=== PATIENT | female | born 1945 | race Caucasian/White ===

== ENCOUNTER → 2018-02-04 | Outpatient (CLI) | payer BC ==
[~2018-02-04] MED LIST: ACYC5OIN4; ALBUAER3; ALPR0.25; AZEL137S; DICL1GEL7; ELMI100C; ESTR1TAB78; FLEC1.3D4; HYDR-755; METO50TA; OMEP40CA2; OXYC-395; PRIM50TA5; PROP40TA3; RANI150C; TERC0.4C2; VALA500T; ZOLP10TA3
--- NOTE | 2018-02-08 09:38 | RSPPFT ---
DATE OF PROCEDURE: 02/04/18 COMMENTS: Spirometry demonstrates an FEV1 of 1.8 at 91% of predicted, FVC of 2.2 at 89%, FEF 25-75 is 100%. Post-bronchodilator study demonstrated improvements in the FEF 25-75 suggesting a response. Lung volumes appear unremarkable but the airways resistance is mildly increased. Diffusion capacity is severely reduced. Flow volume loops are mildly atypical due to lack of proper patient effort. IMPRESSION: 1. Essentially normal spirometry. 2. No significant change following use of bronchodilator. 3. Severe loss in diffusion capacity,.
== END ==
LOC: PHRSP 12:46
PROVIDERS: ATTEND Internal Medicine Pulmonary Disease
DX: J44.9 Chronic obstructive pulmonary disease, unspecified (principal); R05 Cough; R06.00 Dyspnea, unspecified
CPT/HCPCS: 94060; 94726; 94729

== ENCOUNTER 2018-05-22 19:15 | Inpatient (IN) ==
[2018-05-22] MEDS ORDERED: Lidocaine 1%/Epinephrine 1:100,000 Inj 50 ML Vial INFILTRATN ONE (19:58)
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
[2018-05-23] MEDS ORDERED: Acetaminophen 325 MG Tablet PO PRN (01:21)
[2018-05-23] MEDS ORDERED: Bisacodyl 10 MG Supp RECTAL PRN (01:21)
[2018-05-23 01:37] LABS: Baso # (Auto) 0.1 th/mm3 (0.0-0.2); Baso % (Auto) 0.5 % (0.0-2.0); Eos % (Auto) 0.1 % (0.0-4.0); Hemoglobin 13.8 gm/dL (11.6-15.3); Lymph # (Auto) 1.3 th/mm3 (1.0-4.8); Lymph % (Auto) 11.7 % (9.0-44.0); Mean Corpuscular HGB Conc 32.8 % (32.0-36.0); Mean Corpuscular Volume 85.4 fL (80.0-100.0); Mean Platelet Volume 8.9 fL (7.0-11.0); Mono # (Auto) 1.1 th/mm3 (0.0-0.9); Neut # (Auto) 8.7 th/mm3 (1.8-7.7); Neut % (Auto) 77.7 % (16.0-70.0); Platelet Count 247 th/mm3 (150-450); Red Blood Count 4.92 mil/mm3 (4.00-5.30); Red Cell Distribution Width 17.4 % (11.6-17.2); White Blood Count 11.2 th/mm3 (4.0-11.0)
[2018-05-23 01:51] LABS: Activated Partial Thrombo Time 25.7 sec (24.3-30.1); Prothrombin Time 10.3 sec (9.8-11.6)
[2018-05-23 01:52] LABS: Anion Gap 10 meq/L (5-15); Blood Urea Nitrogen 14 mg/dL (7-18); Calcium 8.8 mg/dL (8.5-10.1); Carbon Dioxide 25.6 meq/L (21.0-32.0); Chloride 105 meq/L (98-107); Glomerular Filtration Rate Greater Than 89 mL/min (>89); Glucose,Random 103 mg/dL (74-106); Potassium 4.3 meq/L (3.5-5.1); Sodium 141 meq/L (136-145)
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
[2018-05-23] MEDS: Sod Chloride 0.9% Inj 1,000 ML IV.CONT SCH ×2 (04:05→13:28)
[2018-05-23] MEDS: Morphine Sulfate Inj 2 MG/ML Vial IV.PUSH PRN (04:05)
[2018-05-23] MEDS ORDERED: Chlorhexidine Gluconate 2% 1 Pack (2 Cloths) TOPICAL ONE (04:06)
[2018-05-23] MEDS ORDERED: Metoprolol Tartrate 25 MG Tablet PO ONE (04:06)
[2018-05-23] MEDS ORDERED: Sodium Chlor 0.9% Inj 500 ML IV.SIG SCH (05:00)
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
[2018-05-23] MEDS: Senna/Docusate Sodium 8.6/50 MG Tablet PO SCH ×2 (09:19→20:26)
--- NOTE | 2018-05-23 13:58 | ECG ---
Date Performed: 05/23/2018 Time Performed: 05:15:52 PTAGE: 72 years EKG: Sinus rhythm . Left axis deviation RBBB with left anterior fascicular block Inferior infarct - age undetermined Ab normal ECG PREVIOUS TRACING : 06/28/2012 20.08 DOCTOR: Fabian Barber Interpretating Date/Time 05/23/2018 13:56:40
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
[2018-05-23] MEDS ORDERED: Metoprolol Tartrate 50 MG Tablet PO SCH (18:00)
[2018-05-24] MEDS: Sod Chloride 0.9% Inj 1,000 ML IV.CONT SCH ×2 (01:42→09:22)
[2018-05-24 09:48] LABS: Baso # (Auto) 0.1 th/mm3 (0.0-0.2); Baso % (Auto) 0.6 % (0.0-2.0); Eos # (Auto) 0.1 th/mm3 (0.0-0.4); Eos % (Auto) 0.6 % (0.0-4.0); Hematocrit 36.3 % (35.0-46.0); Hemoglobin 12.4 gm/dL (11.6-15.3); Lymph # (Auto) 1.3 th/mm3 (1.0-4.8); Mean Corpuscular HGB Conc 34.2 % (32.0-36.0); Mean Corpuscular Hemoglobin 28.5 pg (27.0-34.0); Mean Corpuscular Volume 83.5 fL (80.0-100.0); Mean Platelet Volume 8.2 fL (7.0-11.0); Mono # (Auto) 1.2 th/mm3 (0.0-0.9); Neut # (Auto) 7.4 th/mm3 (1.8-7.7); Neut % (Auto) 73.8 % (16.0-70.0); Platelet Count 201 th/mm3 (150-450); Red Blood Count 4.34 mil/mm3 (4.00-5.30); Red Cell Distribution Width 17.7 % (11.6-17.2)
[2018-05-24] MEDS: Loratadine 10 MG Tablet PO SCH (09:57)
[2018-05-24] MEDS: Senna/Docusate Sodium 8.6/50 MG Tablet PO SCH ×2 (09:58→20:47)
[2018-05-24] MEDS: Propranolol 40 MG Tablet PO SCH ×2 (10:03→20:47)
[2018-05-24 10:26] LABS: Alanine Aminotransferase 20 U/L (10-53); Alkaline Phosphatase 57 U/L (45-117); Anion Gap 9 meq/L (5-15); Aspartate Aminotransferase 23 U/L (15-37); Blood Urea Nitrogen 12 mg/dL (7-18); Calcium 8.4 mg/dL (8.5-10.1); Carbon Dioxide 26.4 meq/L (21.0-32.0); Chloride 105 meq/L (98-107); Glomerular Filtration Rate Greater Than 89 mL/min (>89); Glucose,Random 121 mg/dL (74-106); Potassium 3.2 meq/L (3.5-5.1); Sodium 140 meq/L (136-145); Total Protein 6.5 g/dL (6.4-8.2)
--- NOTE | 2018-05-24 10:39 | P.PNOP ---
Subjective Interval history: Resting comfortably. She states that her right wrist is continuing to improve.. A cockup wrist brace was applied yesterday Physical Exam Vital signs: Vital Signs 05/23/18 12:00 05/23/18 14:33 05/23/18 16:00 Temperature 97.3 F L 98 F Pulse Rate 84 87 Respiratory Rate 18 18 Blood Pressure 128/71 149/73 H Pulse Oximetry 94 L 97 05/23/18 20:00 05/24/18 00:15 05/24/18 08:00 Temperature 98.3 F 98.8 F 97.9 F Pulse Rate 81 63 84 Respiratory Rate 18 18 18 Blood Pressure 152/72 H 143/68 H 116/60 Pulse Oximetry 95 93 L 94 L Intake & Output 05/23/18 05/24/18 05/24/18 18:59 06:59 18:59 Intake Total 1000 / 1000 Balance 1000 / 1000 Intake: IV 1000 / 1000 NS Inj 1,000 ML @ 100 mls/hr IV 1000 / 1000 .CONT .Q10H [facility] Rx#:[id number] Other: # Voids 4 Date of Last Bowel Movement 05/21/18 05/21/18 Narrative: Right upper extremity: No pain with shoulder elbow range of motion. Removal cockup wrist splint is in place. She has intact sensation over the radial ulnar and median nerve distributions with good capillary refills. She is able to fully extend her fingers and make a fist Results - Labs CBC & Chem 7: 05/24/18 08:34 05/24/18 08:34 Laboratory Results - last 24 hr 05/24/18 05/24/18 08:34 08:34 WBC 10.0 RBC 4.34 Hgb 12.4 Hct 36.3 MCV 83.5 MCH 28.5 MCHC 34.2 RDW 17.7 H Plt Count 201 MPV 8.2 Neut % (Auto) 73.8 H Lymph % (Auto) 13.0 [place] % (Auto) 12.0 H Eos % (Auto) 0.6 Baso % (Auto) 0.6 Neut # (Auto) 7.4 Lymph # (Auto) 1.3 [place] # (Auto) 1.2 H Eos # (Auto) 0.1 Baso # (Auto) 0.1 WBC Differential . Differential Comment Auto diff final Sodium 140 Potassium 3.2 L D Chloride 105 Carbon Dioxide 26.4 Anion Gap 9 BUN 12 Creatinine 0.52 Estimated GFR Greater than 89 Random Glucose 121 H Calcium 8.4 L Total Bilirubin 0.6 AST 23 ALT 20 Alkaline Phosphatase 57 Total Protein 6.5 Albumin 3.0 L Assessment and Plan - Assessment and Plan Right radial styloid fracture Nonoperative treatment. Nonweightbearing right wrist. Cockup wrist splint to be worn at all times. She is to work on extension flexion of all fingers. Orthopedically cleared for discharge. Follow-up appointment in approximately 2 weeks of the right wrist
[2018-05-24] MEDS ORDERED: ELMIRON 100 MG PO SCH (11:00)
[2018-05-24] MEDS: Primidone 50 MG Tablet PO SCH ×2 (12:07→20:49)
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
[2018-05-24] MEDS ORDERED: Enoxaparin Inj 40 MG/0.4 ML Syringe SQ ONE (16:00)
[2018-05-24] MEDS: Metoprolol Tartrate 50 MG Tablet PO SCH (17:16)
[2018-05-24] MEDS: ALPRAZolam 0.25 MG Tablet PO SCH (20:47)
[2018-05-24] MEDS: Morphine Sulfate Inj 2 MG/ML Vial IV.PUSH PRN (22:20)
[2018-05-25 07:36] LABS: Chloride 104 meq/L (98-107); Potassium 3.8 meq/L (3.5-5.1); Sodium 139 meq/L (136-145)
[2018-05-25 07:41] LABS: Anion Gap 10 meq/L (5-15); Blood Urea Nitrogen 10 mg/dL (7-18); Calcium 8.1 mg/dL (8.5-10.1); Carbon Dioxide 25.2 meq/L (21.0-32.0); Glomerular Filtration Rate Greater Than 89 mL/min (>89); Glucose,Random 110 mg/dL (74-106)
[2018-05-25] MEDS: Metoprolol Tartrate 50 MG Tablet PO SCH ×3 (08:09→17:44)
[2018-05-25] MEDS: Propranolol 40 MG Tablet PO SCH ×2 (08:09→20:21)
[2018-05-25] MEDS: Loratadine 10 MG Tablet PO SCH (08:09)
[2018-05-25] MEDS: Senna/Docusate Sodium 8.6/50 MG Tablet PO SCH ×2 (08:09→20:20)
[2018-05-25] MEDS: Primidone 50 MG Tablet PO SCH ×2 (08:09→20:20)
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
[2018-05-25] MEDS: ALPRAZolam 0.25 MG Tablet PO SCH (20:21)
[2018-05-26] MEDS: Senna/Docusate Sodium 8.6/50 MG Tablet PO SCH ×2 (08:45→21:24)
[2018-05-26] MEDS: Primidone 50 MG Tablet PO SCH ×2 (08:45→21:24)
[2018-05-26] MEDS: Metoprolol Tartrate 50 MG Tablet PO SCH ×3 (08:45→18:47)
[2018-05-26] MEDS: Propranolol 40 MG Tablet PO SCH ×2 (08:45→21:24)
[2018-05-26] MEDS: Loratadine 10 MG Tablet PO SCH (08:46)
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
[2018-05-26] MEDS: ALPRAZolam 0.25 MG Tablet PO SCH (21:24)
[2018-05-27] MEDS: Loratadine 10 MG Tablet PO SCH (08:47)
[2018-05-27] MEDS: Senna/Docusate Sodium 8.6/50 MG Tablet PO SCH ×2 (08:47→21:20)
[2018-05-27] MEDS: Propranolol 40 MG Tablet PO SCH ×2 (08:47→21:20)
[2018-05-27] MEDS: Metoprolol Tartrate 50 MG Tablet PO SCH ×3 (08:47→17:28)
[2018-05-27] MEDS: Primidone 50 MG Tablet PO SCH ×2 (08:47→21:20)
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
[2018-05-27] MEDS: ALPRAZolam 0.25 MG Tablet PO SCH (21:20)
[2018-05-28] MEDS: Metoprolol Tartrate 50 MG Tablet PO SCH ×3 (08:48→17:40)
[2018-05-28] MEDS: Senna/Docusate Sodium 8.6/50 MG Tablet PO SCH ×2 (08:49→21:01)
[2018-05-28] MEDS: Primidone 50 MG Tablet PO SCH ×2 (08:49→21:01)
[2018-05-28] MEDS: Propranolol 40 MG Tablet PO SCH ×2 (08:49→21:01)
[2018-05-28] MEDS: Loratadine 10 MG Tablet PO SCH (08:49)
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
[2018-05-28] MEDS: ALPRAZolam 0.25 MG Tablet PO SCH (21:01)
[2018-05-28] MEDS: Methocarbamol 500 MG Tablet PO PRN (23:46)
[2018-05-29] MEDS: Loratadine 10 MG Tablet PO SCH (08:47)
[2018-05-29] MEDS: Senna/Docusate Sodium 8.6/50 MG Tablet PO SCH ×3 (08:47→20:02)
[2018-05-29] MEDS: Primidone 50 MG Tablet PO SCH ×3 (08:47→20:01)
[2018-05-29] MEDS: Methocarbamol 500 MG Tablet PO PRN (09:26)
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
[2018-05-29] MEDS: Propranolol 40 MG Tablet PO SCH ×3 (09:30→20:01)
[2018-05-29] MEDS: Metoprolol Tartrate 50 MG Tablet PO SCH ×3 (09:30→17:24)
[2018-05-29] MEDS: ALPRAZolam 0.25 MG Tablet PO SCH ×2 (19:55→20:03)
[2018-05-30] MEDS: Senna/Docusate Sodium 8.6/50 MG Tablet PO SCH ×2 (09:10→21:04)
[2018-05-30] MEDS: Propranolol 40 MG Tablet PO SCH ×2 (09:10→21:03)
[2018-05-30] MEDS: Loratadine 10 MG Tablet PO SCH (09:10)
[2018-05-30] MEDS: Primidone 50 MG Tablet PO SCH ×2 (09:10→21:03)
[2018-05-30] MEDS: Metoprolol Tartrate 50 MG Tablet PO SCH ×3 (09:10→18:54)
[2018-05-30] MEDS: Methocarbamol 500 MG Tablet PO PRN ×2 (10:51→21:04)
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
[2018-05-30] MEDS: ALPRAZolam 0.25 MG Tablet PO SCH (21:04)
[2018-05-31] MEDS: Metoprolol Tartrate 50 MG Tablet PO SCH ×3 (08:12→17:31)
[2018-05-31] MEDS: Primidone 50 MG Tablet PO SCH ×2 (08:12→20:38)
[2018-05-31] MEDS: Loratadine 10 MG Tablet PO SCH (08:13)
[2018-05-31] MEDS: Senna/Docusate Sodium 8.6/50 MG Tablet PO SCH ×2 (08:13→20:38)
[2018-05-31] MEDS: Propranolol 40 MG Tablet PO SCH ×2 (08:13→20:38)
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
[2018-05-31] MEDS: Methocarbamol 500 MG Tablet PO PRN (20:38)
[2018-05-31] MEDS: ALPRAZolam 0.25 MG Tablet PO SCH (20:38)
[2018-06-01 08:06] VITALS: RESP 18
[2018-06-01] MEDS: Loratadine 10 MG Tablet PO SCH (08:10)
[2018-06-01] MEDS: Methocarbamol 500 MG Tablet PO PRN (08:10)
[2018-06-01] MEDS: Primidone 50 MG Tablet PO SCH (08:10)
[2018-06-01] MEDS: Propranolol 40 MG Tablet PO SCH (08:10)
[2018-06-01] MEDS: Metoprolol Tartrate 50 MG Tablet PO SCH ×3 (08:10→17:23)
[2018-06-01] MEDS: Senna/Docusate Sodium 8.6/50 MG Tablet PO SCH (08:11)
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
[2018-06-01 14:13] VITALS: BP 146/77; PULSE 80; TEMP 98.1; O2SAT 97
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
== END 2018-06-01 18:21 ==
LOC: NEPE 19:15 → NEDA 19:15 → OBSVTOIN 05-23 02:06 → NEDA 05-23 03:37 → N06 05-23 03:50
PROVIDERS: ADMIT Hospitalist; ATTEND Hospitalist